=== PATIENT | female | born 1965 | race Caucasian/White ===

== ENCOUNTER 2024-06-21 10:36 | Inpatient (IN) | payer MEDICAID ==
[~2024-06-21] VITALS: Ht 154.9 cm; Wt 99.3 kg
[2024-06-21 11:51] LABS: BASOPHILS % (AUTO) 0.6 % (0.0-2.0); EOSINOPHILS # (AUTO) 0.1 K/uL (0.0-0.7); EOSINOPHILS % (AUTO) 1.5 % (0.0-6.0); HEMATOCRIT 42 % (33-45); HEMOGLOBIN 14.5 g/dL (11.5-14.8); LYMPHOCYTES # (AUTO) 3.4 K/uL (0.8-4.8); LYMPHOCYTES % (AUTO) 42.4 % (20.0-44.0); MEAN CORPUSCULAR HEMOGLOBIN 30 PG (26.0-33.0); MEAN CORPUSCULAR HGB CONC 34 g/dl (31.0-36.0); MEAN CORPUSCULAR VOLUME 89 fL (82-100); MONOCYTES # (AUTO) 0.6 K/uL (0.1-1.30); MONOCYTES % (AUTO) 7.2 % (2.0-12.0); NEUTROPHILS # (AUTO) 3.8 K/uL (1.8-8.9); NEUTROPHILS % (AUTO) 48.3 % (43.0-81.0); PLATELET COUNT (AUTO) 262 K/uL (150-450); RED BLOOD CELL COUNT(AUTO) 4.78 MIL/uL (4.0-5.2); RED CELL DISTRIBUTION WIDTH 13.4 % (11.5-15.0); WHITE BLOOD COUNT (AUTO) 7.9 K/uL (4.3-11.0)
[2024-06-21] MEDS ORDERED: LORAZEPAM INJ 2 MG/ML VIAL ONE (11:59)
[2024-06-21 12:06] LABS: ALANINE AMINOTRANSFERASE 37 U/L (12-78); ALBUMIN 3.6 g/dL (3.4-5.0); ALCOHOL, BLOOD < 3 mg/dL (0-10); ALKALINE PHOSPHATASE 105 U/L (46-116); ASPARTATE AMINOTRANSFERASE 22 U/L (15-37); BILIRUBIN,DIRECT 0.1 mg/dL (0.0-0.2); BILIRUBIN,TOTAL 0.3 mg/dL (0.2-1.0); CALCIUM, SERUM 9.3 mg/dL (8.5-10.1); CARBON DIOXIDE 26 mmol/L (21-32); CHLORIDE 107 mmol/L (98-107); CREATININE 0.7 mg/dL (0.6-1.3); GLUCOSE 91 mg/dL (74-106); POTASSIUM 3.9 mmol/L (3.5-5.1); SODIUM SERUM 142 mmol/L (136-145); TOTAL PROTEIN, SERUM 7.7 g/dL (6.4-8.2); UREA NITROGEN, BLOOD 15 mg/dL (7-18)
[2024-06-21] MEDS: LORAZEPAM INJ 2 MG/ML VIAL IVP ONE (12:06)
[2024-06-21] MEDS: IV NS 0.9% 500 ML BAG IV ONE (12:06)
[2024-06-21 12:09] LABS: ACETAMINOPHEN <10 ug/ml (10-30); SALICYLATE 0.2 mg/dL (2.8-20.0)
[2024-06-21 18:19] LABS: APPEARANCE,URINE CLEAR (CLEAR); BILIRUBIN,URINE NEGATIVE (NEGATIVE); BLOOD, URINE NEGATIVE Ery/uL (NEGATIVE); COLOR,URINE YELLOW (YELLOW); KETONES,URINE NEGATIVE (NEGATIVE); LEUKOCYTE ESTERASE ,URINE NEGATIVE (NEGATIVE); NITRITE, URINE NEGATIVE (NEGATIVE); PH,URINE 6.5 (5.0-8.0); PROTEIN,URINE NEGATIVE (NEGATIVE); UGLUCOSE NEGATIVE (NEGATIVE); UROBILINOGEN,URINE 0.2 EU/dL (0.2)
[2024-06-21 18:25] LABS: AMPHETAMINE, URINE NEGATIVE (NEGATIVE); BARBITURATE, URINE NEGATIVE (NEGATIVE); BENZODIAZEPINE, URINE NEGATIVE (NEGATIVE); CANNABINOID, URINE NEGATIVE (NEGATIVE); COCCAINE, URINE NEGATIVE (NEGATIVE); OPIATE, URINE NEGATIVE (NEGATIVE); PHENCYCLIDINE SCREEN,URINE NEGATIVE (NEGATIVE)
[2024-06-21] MEDS: OLANZAPINE ZYDIS 5 MG TAB.RAPDIS PO ONE (23:14)
[2024-06-22 16:00] VITALS: BP 128/71; TEMP 97.7; O2SAT 94
[2024-06-22 20:00] VITALS: BP 130/74; TEMP 97.7; O2SAT 96
[2024-06-22] MEDS: OLANZAPINE 2.5 MG TABLET PO ONE (20:51)
[2024-06-23] MEDS: risperiDONE 1 MG TABLET PO SCH (11:07)
[2024-06-23] MEDS: cetrizine 10 MG TABLET PO SCH (15:51)
[2024-06-23] MEDS ORDERED: cetrizine 10 MG TABLET PO SCH (16:00)
[2024-06-23 16:18] VITALS: O2SAT 96
[2024-06-23] MEDS: ALBUTEROL HALF STRENGTH 1.25 MG/3 ML VIAL.NEB NEB PRN (16:18)
[2024-06-23] MEDS: IPRATROPIUM NEB FS 0.5 MG/2.5 ML AMPUL.NEB NEB PRN (16:18)
[2024-06-23 16:27] VITALS: O2SAT 98
[2024-06-23] MEDS: LORAZEPAM 0.5 MG TABLET PO PRN (21:30)
[2024-06-24 08:00] VITALS: BP 103/74; TEMP 97.9; O2SAT 96
[2024-06-24 16:00] VITALS: BP 110/75; TEMP 97.7; O2SAT 98
[2024-06-24 21:29] VITALS: BP 135/82; TEMP 98.1; O2SAT 96
[2024-06-25 08:00] VITALS: BP 118/78; TEMP 98.1; O2SAT 98
[2024-06-25] MEDS ORDERED: RISP1TAB7 PO (10:18)
[2024-06-25] MEDS: SERTRALINE HCL 25 MG TABLET PO SCH (12:12)
[2024-06-25 16:00] VITALS: BP 121/78; TEMP 97.6; O2SAT 95
== END 2024-06-25 18:35 | disposition home or self-care (01) | DRG 52 ==
LOC: ER 10:36 → MED 06-22 11:25
PROVIDERS: ADMIT Nurse Practitioner Acute Care; ATTEND Internal Medicine
DX: G93.40 Encephalopathy, unspecified (principal); D68.59 Other primary thrombophilia; F44.9 Dissociative and conversion disorder, unspecified; F29 Unspecified psychosis not due to a substance or known physiological condition; R62.7 Adult failure to thrive; E66.9 Obesity, unspecified; Z88.0 Allergy status to penicillin; F43.21 Adjustment disorder with depressed mood; Z91.010 Allergy to peanuts; Z68.41 Body mass index [BMI] 40.0-44.9, adult; Z20.822 Contact with and (suspected) exposure to COVID-19
CPT/HCPCS: 36415; 70450-TC; 80048-TC; 80076-TC; 82962-TC; 84484-TC; 85025-TC; 94799-TC; G0378; G0480; J2060; J7040